=== PATIENT | male | born 1990 | race Two or more races ===

== ENCOUNTER 2017-01-12 11:57 | Emergency (ER) | payer MEDICAID ==
[~2017-01-12] VITALS: Ht 170.2 cm; Wt 68.0 kg
--- NOTE | 2017-01-12 12:48 | NUR ---
SPLINT REMOVED. MD AT BEDSIDE FOR REASSESSMENT.
--- NOTE | 2017-01-12 13:00 | NUR ---
EMT AT BEDSIDE FOR SPLINT APPLICATION
--- NOTE | 2017-01-12 13:05 | NUR ---
POSTERIOR SHORT LEG SPLINT COMPLETED, DSITAL CMS INTACT. PENDING DISCHARGE ONCE SPLINT IS HARDENED. PT HAS OWN CRUTCHES AT BEDSIDE.
[2017-01-12 13:23] VITALS: BP 139/70
--- NOTE | 2017-01-12 13:23 | NUR ---
Patient discharged to home in stable condition. Written and verbal after care instructions given. Patient verbalizes understanding of instruction.
== END 2017-01-12 13:24 | disposition home or self-care (01) ==
LOC: ER 11:58
DX: S82.891A Other fracture of right lower leg, initial encounter for closed fracture (principal); X58.XXXA Exposure to other specified factors, initial encounter; Y93.66 Activity, soccer; Y92.89 Other specified places as the place of occurrence of the external cause; Y99.8 Other external cause status
CPT/HCPCS: 29515; 99283; A4606; Z7610